=== PATIENT | female | born 2000 | race Caucasian/White ===

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

== ENCOUNTER 2021-01-20 09:26 | Emergency (ER) | payer OTHER ==
[~2021-01-20] VITALS: Ht 162.6 cm; Wt 48.0 kg
[2021-01-20 09:26] VITALS: BP 105/42
--- NOTE | 2021-01-20 11:41 | RAD ---
OB ultrasound 14 weeks HISTORY: Vaginal bleeding Sonographic examination appearance was performed by transabdominal technique. Multiple static images were obtained. There is a single live anterior . The heartbeat is confirmed at 165 beats for minute. The crown-rump length of 4.1 cm corresponds with a 11 week 0 day gestational age and estimated confin ement of August 11, 2021. The LMP of 10/10/2020 corresponds with a 14 week 4 day gestational age and estimated confinement of July 17, 2012. Visualization of structures is limited at this early gestational age. There is a hypoechoic are a adjacent to the gestational sac measures 1.2 x 1.0 x 1.9 cm. The maternal cervix appears normal osman sures 3.6 centers in length. IMPRESSION: 1. Single live intrauterine at 11 weeks 0 day gestational age. Discrepancy with size by LMP is likely secondary to an inaccurate LMP. 2. Small subchorionic hemorrhage. A short-term follow-up ultrasound could be performed if clinically indicated otherwise a structural survey would be performed at 18-21 weeks gestational age. Electronically signed by: Charles Owen III, MD (01/20/2021 11:38 AM) [facility]
[2021-01-20 11:55] LABS: BACTERIA,URINE FEW /HPF (0-FEW); BILIRUBIN,URINE NEG (NEG); CLARITY,URINE CLEAR; COLOR,URINE YELLOW; GLUCOSE,URINE NEG (NEG); NITRITE,URINE NEG (NEG); RBC,URINE RARE /HPF (0-2); SQUAMOUS EPITHELIAL CELL,UR MANY /LPF; UROBILINOGEN,URINE 0.2 mg/dL (0.2 mg/dL)
[2021-01-20 12:40] LABS: BASO % 0 % (0-3); EOS % 1 % (0-3); HEMATOCRIT 36.7 % (36.0-47.0); HEMOGLOBIN 12.4 g/dL (12.0-15.5); LYMPH # 1.6 x10^3/uL (1.0-4.8); LYMPH % 27 % (24-48); MEAN CORPUSCULAR HEMOGLOBIN 31 pg (25-35); MEAN CORPUSCULAR HGB CONC 34 g/dL (31-37); MEAN CORPUSCULAR VOLUME 90 fL (79-100); MONO # 0.3 x10^3/uL (0.0-1.1); MONO % 6 % (0-9); NEUT % 67 % (31-73); PLATELET COUNT 236 x10^3/uL (140-400); RED BLOOD COUNT 4.06 x10^6/uL (3.50-5.40); RED CELL DISTRIBUTION WIDTH 12.2 % (11.5-14.5)
[2021-01-20 12:43] LABS: CALCIUM 8.6 mg/dL (8.5-10.1); CREATININE 0.4 mg/dL (0.6-1.0); GFR 201.5; POTASSIUM 3.7 mmol/L (3.5-5.1)
[2021-01-20 12:50] LABS: ALBUMIN 3.7 g/dL (3.4-5.0); ALBUMIN/GLOBULIN RATIO 1.2 (1.0-1.7); TOTAL BILIRUBIN 0.6 mg/dL (0.2-1.0); TOTAL PROTEIN 6.7 g/dL (6.4-8.2)
--- NOTE | 2021-01-20 14:22 | PHYS DOC ---
Past History Past Medical History: Other Past Surgical History: No Surgical History Smoking: Non-smoker Alcohol Use: None Drug Use: None General Adult EDM: Chief Complaint: VAGINAL BLEEDING HPI: HPI: 21 yo F past medical history of hypothyroidism and low vitamin D, presents to the ED with complaints of vaginal spotting in early x2 days (has not filled up a small tampon with blood). Reports she was seen by CARE CENTER MANAGER in town this past week and had an ultrasound that confirmed her . States no heavy vaginal bleeding. No history of anemia or blood transfusions. This is an unplanned with strong support at home from father of the baby. Review of Systems: Review of Systems: Constitutional: Denies fever or chills Eyes: Denies change in visual acuity or right eye HENT: Denies nasal congestion or sore throat Respiratory: Denies cough or shortness of breath Cardiovascular: Denies chest pain or edema or epigastric discomfort GI: Denies abdominal pain, nausea, vomiting, : Denies dysuria or hematuria or abnormal discharge Musculoskeletal: Denies back pain or joint pain Integument: Denies rash or diaphoresis Neurologic: Denies headache, focal weakness or sensory changes Endocrine: Denies polyuria or polydipsia Psychiatric: Denies depression or anxiety, denies suicidal homicidal ideations Allergies: Allergies: Allergies Coded Allergies Type Severity Reaction Last Updated Verified nitrofurantoin Allergy Unknown 05/22/19 Yes Physical Exam: PE: Constitutional: Well developed, well nourished, no acute distress, non-toxic appearance, very thin/petite HENT: Normocephalic, atraumatic, Eyes: EOMI, conjunctiva normal, no discharge. Neck: Normal range of motion, supple, Cardiovascular: S1/2 present, regular rhythm Lungs & Thorax: Speaking in full sentences, bilateral equal chest rise, no tachypnea or increased work of breathing Abdomen: soft, no tenderness, Skin: Warm, dry, no erythema, no rash. [] Back: No tenderness, no CVA tenderness. [] Extremities: No tenderness, no cyanosis, no lower extremity edema Neurologic: Alert and oriented X 3, normal motor function, normal sensory function, no focal deficits noted. [] Psychologic: Affect normal, judgement normal, mood normal. [] Pelvic: strongly advised/encouraged and explained why, given HD status & busy ed , plan was to perform prior to dc but pt left the ed AMA Current Patient Data: Labs: Laboratory Tests Test 01/20/21 09:50 01/20/21 09:57 01/20/21 11:55 Urine Collection Type Unknown Urine Color Yellow Urine Clarity Clear Urine pH 5.5 Urine Specific [place] >=1.030 Urine Protein Neg (NEG-TRACE) Urine Glucose (UA) Neg mg/dL (NEG) Urine Ketones (Stick) Neg mg/dL (NEG) Urine Blood Trace (NEG) Urine Nitrite Neg (NEG) Urine Bilirubin Neg (NEG) Urine Urobilinogen Dipstick 0.2 mg/dL (0.2 mg/dL) Urine Leukocyte Esterase Neg (NEG) Urine RBC Rare /HPF (0-2) Urine WBC 1-4 /HPF (0-4) Urine Squamous Epithelial Cells Many /LPF Urine Bacteria Few /HPF (0-FEW) Urine Mucus Slight /LPF POC Urine HCG, Qualitative hcg positive (Negative) White Blood Count 6.0 x10^3/uL (4.0-11.0) Red Blood Count 4.06 x10^6/uL (3.50-5.40) Hemoglobin 12.4 g/dL (12.0-15.5) Hematocrit 36.7 % (36.0-47.0) Mean Corpuscular Volume 90 fL (79-100) Mean Corpuscular Hemoglobin 31 pg (25-35) Mean Corpuscular Hemoglobin Concent 34 g/dL (31-37) Red Cell Distribution Width 12.2 % (11.5-14.5) Platelet Count 236 x10^3/uL (140-400) Neutrophils (%) (Auto) 67 % (31-73) Lymphocytes (%) (Auto) 27 % (24-48) Monocytes (%) (Auto) 6 % (0-9) Eosinophils (%) (Auto) 1 % (0-3) Basophils (%) (Auto) 0 % (0-3) Neutrophils # (Auto) 4.0 x10^3uL (1.8-7.7) Lymphocytes # (Auto) 1.6 x10^3/uL (1.0-4.8) Monocytes # (Auto) 0.3 x10^3/uL (0.0-1.1) Eosinophils # (Auto) 0.0 x10^3/uL (0.0-0.7) Basophils # (Auto) 0.0 x10^3/uL (0.0-0.2) Prothrombin Time 10.2 SEC (9.4-11.4) Prothrombin Time INR 1.0 (0.9-1.1) Activated Partial Thromboplast Time 27 SEC (23-33) Sodium Level 137 mmol/L (136-145) Potassium Level 3.7 mmol/L (3.5-5.1) Chloride Level 104 mmol/L (98-107) Carbon Dioxide Level 25 mmol/L (21-32) Anion Gap 8 (6-14) Blood Urea Nitrogen 6 mg/dL (7-20) L Creatinine 0.4 mg/dL (0.6-1.0) L Estimated GFR (Cockcroft-Gault) 201.5 BUN/Creatinine Ratio 15 (6-20) Glucose Level 81 mg/dL (70-99) Calcium Level 8.6 mg/dL (8.5-10.1) Total Bilirubin 0.6 mg/dL (0.2-1.0) Aspartate Amino Transferase (AST) 15 U/L (15-37) Alanine Aminotransferase (ALT) 20 U/L (14-59) Alkaline Phosphatase 40 U/L (46-116) L Total Protein 6.7 g/dL (6.4-8.2) Albumin 3.7 g/dL (3.4-5.0) Albumin/Globulin Ratio 1.2 (1.0-1.7) EKG: EKG: [] Radiology/Procedures: Radiology/Procedures: []IMAGING REPORT Signed PATIENT: RICKY GUTIERREZ LACCOUNT: [id number] : 2000 LOCATION: ER AGE: 21 SEX: F EXAM STATUS: REG ER ORD. PHYSICIAN: VILMA MCGRATH DO REASON: vb in 1st tm PROCEDURE: OB <14 WKS OB ultrasound 14 weeks HISTORY: Vaginal bleeding Sonographic examination appearance was performed by transabdominal technique. Multiple static images were obtained. There is a single live anterior . The heartbeat is confirmed at 165 beats for minute. The crown-rump length of 4.1 cm corresponds with a 11 week 0 day gestational age and estimated confinement of August 11, 2021. The LMP of 10/10/2020 corresponds with a 14 week 4 day gestational age and estimated confinement of July 17, 2012. Visualization of structures is limited at this early gestational age. There is a hypoechoic area adjacent to the gestational sac measures 1.2 x 1.0 x 1.9 cm. The maternal cervix appears normal measures 3.6 centers in length. IMPRESSION: 1. Single live intrauterine at 11 weeks 0 day gestational age. Discrepancy with size by LMP is likely secondary to an inaccurate LMP. 2. Small subchorionic hemorrhage. A short-term follow-up ultrasound could be performed if clinically indicated otherwise a structural survey would be performed at 18-21 weeks gestational age. Electronically signed by: Heriberto Rubio III, MD (01/20/2021 11:38 AM) [facility] DICTATED AND SIGNED BY: HERIBERTO RUBIO III, MD DATE: 01/20/21 1134 CC: PCP,NO; VILMA MCGRATH DO ~MTH0 0 Heart Score: C/O Chest Pain: No Risk Factors: Risk Factors: DM, Current or recent (<one month) smoker, HTN, HLP, family history of CAD, obesity. Risk Scores: Score 0 - 3: 2.5% MACE over next 6 weeks - Discharge Home Score 4 - 6: 20.3% MACE over next 6 weeks - Admit for Clinical Observation Score 7 - 10: 72.7% MACE over next 6 weeks - Early Invasive Strategies Course & Med Decision Making: Course & Med Decision Making Pertinent Labs and Imaging studies reviewed. (See chart for details) Concern for threatened miscarriage, cannot rule out inevitable given lack of pelvic exam. Patient was fully educated and was aware we were waiting RhoGam medication due to risk of erythroblastosis fetalis/hemolytic disease of the such that she could potentially miscarry or not be able to have inability to conceive given maternal antiodies acting future children. Pt was aware and fully educated on this told RN she needed to leave the hospital AGAINST MEDICAL ADVICE. Patient would not wait for me to speak to her or wait for discharge instructions/papers. The patient has decided to leave our facility against medical advice. I have assessed patient's ability to make informed decision and feel the patient has the capacity to comprehend information regarding the current medical condition and appreciates the impact of the disease or condition and the consequences of various options for treatment, including foregoing treatment. The patient possesses the ability to evaluate all treatment options, comparing the risks and benefits of each option, communicate his or her choice in a consistent manner over time, and is able to make rational choices. I explained to the patient further testing, treatment, and evaluation I would like to perform in the emergency department visit as well as any possible alternatives that can be accomplished in a timely manner. RN and myself have outlined the possible risks of foregoing any or all of these interventions and the patient understands and acknowledges that the decision to leave may result in undesirable consequences such as , permanent disability, and/or loss of current lifestyle. RN encouraged pt to resume care as soon as possible at [facility] or with another provider. This conversation was witnessed by another member of the emergency department staff and RN clearly communicated the patient is welcome to return anytime to continue care at our facility. I called pt on her home phone at [phone]. She initially stated she left the emergency department because she should have been at work but later changes her story to the fact she was hungry, anxious and wanted to get out of a busy emergency department. Patient had seen her CARE CENTER MANAGER who had discussed with her the need for RhoGam given her blood type, but patient was not bleeding at that time. Patient was educated on risks of /hemorrhage if she delays rhogam administration, that I don't want her to lose the ability to have healthy children in the future. I educated that she had already been "spotting" (cannot fill up a tampon) for 2 days and the sooner rhogam is given, the better the change to not have this complication (best within 72 hours of bleeding). I encouraged patient to return to the ED for IM rhogam injection, to reach out to her electronic systems technician CARE CENTER MANAGER to ask questions, to return to ED waiting room and picker tender her discharge papers so she can educate herself more on hemolytic disease, and offered a work no to assist in the inconvenience. Patient was educated on strict ED return precautions for increased vaginal bleeding, worsening or new abdominal/pelvic/back pain, syncope or fever. Patient understands to follow-up with her CARE CENTER MANAGER in 48 hours to repeat her hCG level. Patient understands all these instructions, the urgency, and reports she will discuss her options with her mother. I encouraged her that a new physician is working but would be able to review my note. Pt w/[facility] and all her questions were answered, she was appreciative of her care. Bassem Disclaimer: Bassem Disclaimer: This electronic medical record was generated, in whole or in part, using a voice recognition dictation system. Departure Departure: Impression: Primary Impression: Threatened in first trimester Additional Impressions: Subchorionic hematoma in first trimester Need for rhogam due to Rh negative mother Left against medical advice Disposition: 07 LEFT AGAINST MEDICAL ADVICE Condition: STABLE Referrals: PCP,NO (PCP) Follow-up immediately for RhoGam injection Follow-up in 24 to 48 hours for hCG check [facility] [address] [place], [place] [id number] [facility] Patient Instructions: Discharge Against Medical Advice, Hemolytic Disease of the [place], RhoGAM, Threatened Miscarriage Additional Instructions: FOLLOW UP WITH OBGYN: FOLLOW UP WITHIN 48 HOURS FOR REPEAT LABS, FOLLOW UP EULALIO FOR RHOGAM INJECTION [facility] CARE CENTER MANAGER [address], [address] [place] [address] EMERGENCY DEPARTMENT GENERAL DISCHARGE INSTRUCTIONS Thank you for coming to [facility] (ED) today and trusting us with you care. We trust that you had a positivie experience in our Emergency Department. If you wish to speak to the department management, you may call the director at [phone]. YOUR FOLLOW UP INSTRUCTIONS ARE FOLLOWS: 1. Do you have a private Doctor? If you do not have a private doctor, please ask for a resource list of physicians or clinics that may be able to assist you with follow up care. 2. The Emergency Physician has interpreted your x-rays. The X-Ray specialist will also review them. If there is a change in the findings, you will be notified in 48 hours when at all possible. 3. A lab test or culture has been done, your results will be reviewed and you will be notified if you need a change in treatment. ADDITIONAL INSTRUCTIONS AND INFORMATION: 1. Your care today has been supervised by a physician who is specially trained in emergency care. Many problems require more than one evaluation for a complete diagnosis and treatment. We recommend that you schedule your follow up appointment as recommended to ensure complete treatment of you illness or injury. If you are unable to obtain follow up care and continue to have a problem, or if your condition worsens, we recommend that you return to the ED. 2. We are not able to safely determine your condition over the phone nor are we able to give sound medical advice over the phone. For these safety reasons, if you call for medical advice we will ask you to come to the ED for further evaluation. 3. If you have any questions regarding these discharge instructions please call the ED at [phone]. SAFETY INFORMATION: In the interest of safety, wellness, and injury prevention; we encourage you to wear your sealbelt, if you smoke; quite smoking, and we encourage family to use a protective helmet for bicycling and other sporting events that present an increased risk for head injury. IF YOUR SYMPTOMS WORSEN OR NEW SYMPTOMS DEVELOP, OR YOU HAVE CONCERNS ABOUT YOUR CONDITION; OR IF YOUR CONDITION WORSENS WHILE YOU ARE WAITING FOR YOUR FOLLOW UP APPOINTMENT; EITHER CONTACT YOUR PRIMARY CARE DOCTOR, THE PHYSICIAN WHOSE NAME AND NUMBER YOU WERE GIVEN, OR RETURN TO THE ED IMMEDIATELY. VILMA CAST DO January 20, 2021 14:22
== END 2021-01-20 14:21 | disposition left against medical advice (07) ==
LOC: ER 09:26
DX: O20.0 Threatened abortion (principal); O20.8 Other hemorrhage in early pregnancy; Z3A.11 11 weeks gestation of pregnancy; Z88.8 Allergy status to other drugs, medicaments and biological substances
CPT/HCPCS: 36415; 76801; 80053; 81001; 81025; 85025; 85610; 85730; 86850; 86900; 86901; 99284

== ENCOUNTER 2021-01-28 19:56 | Emergency (ER) | payer OTHER | END 2021-01-28 20:41 | disposition left against medical advice (07) | LOC: ER 19:56 | DX: O20.8 Other hemorrhage in early pregnancy (principal); Z3A.01 Less than 8 weeks gestation of pregnancy; Z53.21 Procedure and treatment not carried out due to patient leaving prior to being seen by health care provider ==